=== PATIENT | male | born 1935 | race Caucasian/White ===

== ENCOUNTER → 2016-08-27 | Outpatient (CLI) | payer MEDICARE, BC ==
[~2016-08-27] MED LIST: ASPIRIN81 M2 PO; BENADRYL25 MG PO; CALCIUM 600 + D1 TA1 PO; FLOMAX0.4 M1 PO; GLUCOSAMINE & C1 CAP PO; LOSARTAN POTASS50 MG PO; MULTIPLE VITAMI1 T11 PO; OMEPRAZOLE20 M1 PO; PERCOCET 5-3251 TAB PO; SIMVASTATIN20 MG PO; [UNRECOGNIZED DRUG - OTHER] PO
--- NOTE | ~2016-08-27 | US37 ---
[facility] A Service of [facility] & [facility] RADIOLOGY TEXT RESULTS PATIENT: KELLY MURRY LOCATION: CNIV : 33 UNIT #: [id number] AGE: [address]: Giovanny Jefferson MD SEX: M ORDER DR: [id number] [facility] [address] [place], [place] [address] [id number] O MR#: [id number] Acc #: [id number] NAME: KELLY MURRY : 1935 SEX: M STUDY DATE/TIME: 08/27/2016 10:40 UNIT: CNIV ROOM: STUDY DESCRIPTION: US Carotid W/Doppler Bilateral Attending Physician: Giovanny Jefferson M.D. Referring Physician: Giovanny Jefferson M.D. Ordering Physician: Giovanny Jefferson M.D. Primary Care Physician: Benjie Allen M.D. MEDICAL IMAGING REPORT This report is preliminary unless electronic signature is present EXAM Carotid duplex scan DATE OF EXAMINATION 08/27/2016 HISTORY Carotid stenosis FINDINGS The right common carotid artery has minimal plaque. There is only a small amount of dense plaque in the right carotid bulb, which extends up into the proximal internal and external carotid arteries. The right internal carotid artery is very tortuous. Peak systolic velocity in the distal right internal carotid artery is 97 cm/second with an end diastolic velocity of 31 cm/second. The ICA:CCA ratio on the right is 1.28. Peak systolic velocity in the right external carotid artery is 64 cm/second. The right vertebral artery is patent with antegrade flow. The left common carotid artery has minimal plaque. There is only a small amount of plaque in the left carotid bulb, which extends up into the proximal internal and external carotid arteries. The left internal carotid artery is also relatively tortuous. Peak systolic velocity in the distal left internal carotid artery is 68 cm/second with an end diastolic velocity of 27 cm/second. The ICA:CCA ratio on the left is 0.92. Peak systolic velocity in the left external carotid artery is 71 cm/second. The left vertebral artery is patent with antegrade flow. IMPRESSION Minimal plaque and no significant stenosis (less than 50%) in the internal and external carotid arteries bilaterally. Patent vertebral arteries bilaterally with antegrade flow. These results are not significantly STS. [facility] A Service of [facility] RADIOLOGY TEXT RESULTS PATIENT: KELLY MURRY LOCATION: CNIV : 33 UNIT #: [id number] AGE: [address]: Giovanny Jefferson MD SEX: M ORDER DR: changed compared to the previous study performed on 08/01/2015. Dictated by... Crescencio Zamudio M.D. THIS IS AN ELECTRONICALLY VERIFIED REPORT Crescencio Zamudio M.D. at 08/28/2016 7:29 AM SBS/to TD: 08/27/2016 21:38 JOB #: [id number] MEDICAL IMAGING REPORT Page 1 of 1 COPY
== END | disposition home or self-care (01) ==
LOC: CNIV 10:07
DX: I65.23 Occlusion and stenosis of bilateral carotid arteries (principal)
CPT/HCPCS: 93880